=== PATIENT | female | born 1970 | race African-American/Black ===

== ENCOUNTER → 2017-07-02 | Outpatient (CLI) | payer OTHER ==
[2015-12-12 09:20] VITALS: BP 150/94
[~2017-07-02] MED LIST: LEVO100T5 PO; MULT1TAB52 PO
--- NOTE | 2017-07-02 16:06 | RAD ---
DATE: 07/02/2017 EXAM: DIGITAL SCREEN BILAT W/CAD HISTORY: Screening Mammogram COMPARISON: Screening mammogram 07/01/2016, 06/27/2015, January 04, 2014 This study was interpreted with the benefit of Computerized Aided Detection (CAD). The breast parenchyma shows scattered fibroglandular densities. Breast parenchyma level B. FINDINGS: Bilateral digital 2-D CC and MLO views including implant displaced views. There is an asymmetry in the superior left breast, posterior depth only seen on the MLO view. No suspicious mass, calcification or architectural distortion in the right breast. IMPRESSION: Asymmetry in the superior left breast only seen on the MLO view. Diagnostic left breast mammogram is recommended to include spot compression MLO and full field ML views with consideration for same-day ultrasound. BI-RADS CATEGORY: 0 INCOMPLETE: NEEDS ADDITIONAL IMAGING EVALUATION AND/OR PRIOR MAMMOGRAMS FOR COMPARISON. RECOMMENDED FOLLOW-UP: ADD ADDITIONAL IMAGING PQRS compliance statement: Patient information was entered into a reminder system with a target due date for the next mammogram. Mammography is a sensitive method for finding small breast cancers, but it does not detect them all and is not a substitute for careful clinical examination. A negative mammogram does not negate a clinically suspicious finding and should not result in delay in biopsying a clinically suspicious abnormality. "Our facility is accredited by the [employer] Mammography [employer]."
== END | disposition home or self-care (01) ==
LOC: MAMMO 15:12
PROVIDERS: ATTEND Obstetrics & Gynecology
DX: Z12.31 Encounter for screening mammogram for malignant neoplasm of breast (principal); N64.89 Other specified disorders of breast
CPT/HCPCS: G0202; 77067

== ENCOUNTER → 2017-07-06 | Outpatient (CLI) | payer OTHER ==
[2015-12-12 09:20] VITALS: BP 150/94
--- NOTE | 2017-07-06 10:22 | RAD ---
DATE: 07/06/2017. EXAM: DIGITAL DIAGNOSTIC LT. HISTORY: Density on mammographic screening. Additional views are requested. COMPARISON: 07/02/2017. This study was interpreted with the benefit of Computerized Aided Detection (CAD). FINDINGS: The breast parenchyma is heterogeneously dense, which could reduce sensitivity of mammography. Breast parenchyma level C.. The density of concern laterally on the left MLO view resolves on spot compression. An immediately subcutaneous dense has stable correlates on remote studies. A subpectoral implant appears intact. There is no suspicious finding. BI-RADS CATEGORY: 2 BENIGN FINDING(S). RECOMMENDED FOLLOW-UP: 12M 12 MONTH FOLLOW-UP. PQRS compliance statement: Patient information was entered into a reminder system with a target due date 07/02/2018 for the next mammogram. Mammography is a sensitive method for finding small breast cancers, but it does not detect them all and is not a substitute for careful clinical examination. A negative mammogram does not negate a clinically suspicious finding and should not result in delay in biopsying a clinically suspicious abnormality. "Our facility is accredited by the [employer] Mammography [employer]."
== END | disposition home or self-care (01) ==
LOC: MAMMO 09:29
PROVIDERS: ATTEND Obstetrics & Gynecology
DX: R92.8 Other abnormal and inconclusive findings on diagnostic imaging of breast (principal)
CPT/HCPCS: G0206; 77065

== ENCOUNTER → 2020-06-06 | Outpatient (CLI) | payer OTHER ==
[2015-12-12 09:20] VITALS: BP 150/94
[~2020-06-06] MED LIST changes: +MULT-445 PO; -MULT1TAB52 PO
--- NOTE | 2020-06-07 08:56 | RAD ---
DATE: 06/06/2020 EXAM: DIGITAL SCREEN BILAT W/CAD HISTORY: Screening COMPARISON: 07/02/2017, 07/01/2016, 06/27/2015 This study was interpreted with the benefit of Computerized Aided Detection (CAD). Breast Density: DENSE The breast parenchyma is dense, which could reduce the sensitivity of mammography. Breast parenchyma level density D. FINDINGS: There are bilateral breast implants. No mass, suspicious calcification, or architectural distortion in either breast. IMPRESSION: No evidence of malignancy. BI-RADS CATEGORY: 2 BENIGN FINDING(S) RECOMMENDED FOLLOW-UP: 12M 12 MONTH FOLLOW-UP PQRS compliance statement: Patient information was entered into a reminder system with a target due date for the next mammogram. Mammography is a sensitive method for finding small breast cancers, but it does not detect them all and is not a substitute for careful clinical examination. A negative mammogram does not negate a clinically suspicious finding and should not result in delay in biopsying a clinically suspicious abnormality. "Our facility is accredited by the [employer] Mammography [employer]."
== END ==
LOC: MAMMO 14:03
PROVIDERS: ATTEND Obstetrics & Gynecology
DX: Z12.31 Encounter for screening mammogram for malignant neoplasm of breast (principal)
CPT/HCPCS: 77067

== ENCOUNTER → 2021-06-17 | Outpatient (CLI) | payer OTHER ==
[2015-12-12 09:20] VITALS: BP 150/94
--- NOTE | 2021-06-17 17:48 | RAD ---
Study: MG Digital Screen 2d, Bilat Mammo History: Routine screening. Comparison: None. Technique: Routine 2D digital mammogram views were obtained bilaterally. Interpretation was assisted with the use of computer-aided detection. Implant displaced and nondisplaced technique was utilized. Findings: Breast Tissue Density D :The breasts are extremely dense, which lowers the sensitivity of mammography . There are no dominant masses, suspicious microcalcifications, or architectural distortion. Bilateral saline implants are intact. IMPRESSION: No mammographic evidence of malignancy. Recommend routine screening mammography in one year noting th at tomosynthesis would be useful given extremely dense breasts. BI-RADS category 1: Negative. Patient information is entered into the reminder system with a target due date for the next screening mammogram. "Our facility is accredited by the [employer] Mammography [employer]." Electronically signed by: CEASAR KLINE MD (06/17/2021 5:46 PM) [id number]
== END ==
LOC: MAMMO 13:53
PROVIDERS: ATTEND Obstetrics & Gynecology
DX: Z12.31 Encounter for screening mammogram for malignant neoplasm of breast (principal)
CPT/HCPCS: 77067